=== PATIENT | female | born 1965 | race Caucasian/White ===

== ENCOUNTER → 2017-02-02 | Outpatient (CLI) | payer BC ==
[~2017-02-02] MED LIST: ALBUTEROL2.5 MG/NEB IN; FORADIL AERO0.012 MG IH; IPRATROPIUM BROM3 M1 IH; PREDNISONE50 MG PO; PRILOSEC20 M1 PO; PROVENTIL0.09 MG/A1 IH; PULMICORT180 MCG/AC IH; Prilosec20 MG PO; SINGULAIR10 MG PO; TYLENOL PM EXTR1 TAB PO; VICKS SINEX
== END ==
LOC: SL 15:54
DX: R06.81 Apnea, not elsewhere classified (principal); R06.83 Snoring; I10 Essential (primary) hypertension; E66.09 Other obesity due to excess calories